=== PATIENT | female | born 2000 | race African-American/Black ===

== ENCOUNTER 2024-03-14 23:23 | Emergency (ER) | payer BC, OTHER ==
[2024-03-14 23:31] VITALS: BP 117/74; PULSE 92; RESP 16; TEMP 98.5; BMI 18.8
[2024-03-15] MEDS ORDERED: ONDANSETRON *ODT* 4 MG TABLET ONE (00:39)
[2024-03-15] MEDS: ONDANSETRON *ODT* 4 MG TABLET SL ONE (00:44)
== END 2024-03-15 02:06 | disposition home or self-care (01) ==
LOC: JER 23:23
DX: K52.9 Noninfective gastroenteritis and colitis, unspecified (principal); R11.2 Nausea with vomiting, unspecified
CPT/HCPCS: 84703; 99283-25; Q0162